=== PATIENT | male | born 1985 | race African-American/Black ===

== ENCOUNTER 2022-05-21 13:52 | Emergency (ER) | payer OTHER, MEDICARE ==
[2022-05-21 14:12] LABS: BASOPHIL 0.3 % (0-2); EOSINOPHIL 0.7 % (0-5); HCT 44.7 % (42.0-52.0); HGB 15.3 g/dl (13.2-18.0); LYMPHOCYTE 13.3 % (15-48); MCH 29.2 pg (25.0-31.0); MCHC 34.2 g/dL (32.0-36.0); MCV 85.3 fL (78.0-100.0); MONOCYTE 5.1 % (0-12); MPV 9.2 fL (6.0-9.5); NEUTROPHIL 80.2 % (41-80); NRBC 0; PLT 310 K/uL (150-400); RBC 5.24 M/uL (4.70-6.00); RDW 13.8 % (11.5-14.0); WBC 14.7 K/uL (4.0-10.5)
[2022-05-21 14:26] LABS: INR 1.02 (0.9-1.2); PROTHROMBIN TIME 13.1 SECONDS (11.9-13.9); PTT 30.1 SECONDS (24.9-34.6)
[2022-05-21 14:57] LABS: ALBUMIN 3.6 g/dL (3.4-5.0); BILIRUBIN - TOTAL 0.3 mg/dL (0.2-1.0); BUN/CREAT RATIO (CALC) 9.7 RATIO; CREATININE 0.93 mg/dL (0.67-1.17); GLOBULIN (CALCULATION) 3.4 g/dL; POTASSIUM 3.3 mmol/L (3.5-5.1)
== END 2022-05-21 15:48 ==
LOC: FER 13:52
PROVIDERS: Emergency Medicine
DX: R07.89 Other chest pain (principal); I10 Essential (primary) hypertension; F17.210 Nicotine dependence, cigarettes, uncomplicated; Z79.899 Other long term (current) drug therapy; Z28.310 Unvaccinated for COVID-19
CPT/HCPCS: 36415; 71045; 80053; 84484; 85025; 85610; 85730; 93005; J1885; J2930